=== PATIENT | female | born 1950 | race Caucasian/White ===

== ENCOUNTER → 2016-11-17 | Outpatient (CLI) | payer MEDICARE ==
--- NOTE | 2016-11-17 16:10 | BD ---
EXAMINATION TYPE: MG DEXA axial skeleton. DATE OF EXAM: 11/17/2016 1:30 PM CLINICAL HISTORY: 66 year-old female known osteoporosis, postmenopausal screening Height: 66 Weight: 182 FRAX RISK QUESTIONS: Alcohol (3 or more units per day): no Family History (Parent hip fracture): no Glucocorticoids (More than 3mos): no (Ex: prednisone, prednisolone, methylprednisolone, dexamethasone, and hydrocortisone). History of Fracture in Adulthood: yes Secondary Osteoporosis: 1. Type 1 Diabetes: no 2. Hyperthyroidism: no 3. Menopause before 45: no 4. Malnutrition: no 5. Chronic liver disease: no Rheumatoid Arthritis: no Current Tobacco Use: no RISK FACTORS HISTORY OF: History of Wrist Fracture: yes When: about 8 years ago Surgery to Wrist (left): yes When: about years ago Other Fractures since Age 51: yes, wrist When: about 8 years ago Family History of Osteoporosis: unsure Drink Alcohol: no Active: yes Diet low in dairy products/other sources of calcium: no Postmenopausal woman: yes Take estrogen and/or progesterone medications: no Lost more than 2 inches in height since high school: no Frequent falls: no Poor Health: no Hyperparathyroidism: no Adrenal Insufficiency: no MEDICATIONS: Prednisone or other steroids: no Thyroid Medications: no Osteoporosis Medications: not now... prescription just renewed Which medication: Fosamax recently; Actonel in 2014 How Long: a couple years Additional Medications: multi Vitamin EXAM MEASUREMENTS: Bone mineral densitometry was performed using the [employer]. Bone mineral density as measured about the Lumbar spine is: ----- L1-L4(G/cm2): 0.815 T Score Values are as follows: ----- L2: -3.0 ----- L3: -2.6 ----- L4: -3.4 ----- L1-L4: -3.0 Bone mineral density has: Increased 0.5% since study of: 03/11/2014 Bone mineral density about the R hip (g/cm2): 0.727 Bone mineral density about the L hip (g/cm2): 0.693 T Score values are as follows: -----R Neck: -2.2 -----L Neck: -2.5 -----R Intertrochanter: -1.7 -----L Intertrochanter: -1.8 Bone mineral density has: Increased 1.1% since study of: 03/11/2014 IMPRESSION: Osteoporosis as indicated by T score values in the lumbar spine and left hip. There is increased fracture risk and therapy is usually indicated based on age. Re-Screen 1-2 years. NOTE: T-SCORE=SD OF THE YOUNG ADULT MEAN.
--- NOTE | 2016-11-17 18:45 | WWHP ---
DATE OF DICTATION: 11/17/2016 CHIEF COMPLAINT: The patient is here for her routine gynecologic exam and mammogram. HISTORY OF PRESENT ILLNESS: This is a 66-year-old G1, P0-0-1-0 with an LMP of 1998. She is without gynecologic complaints. She denies any postmenopausal bleeding. She used to be seen by Dr. Medina for her gynecologic care. Her last Pap smear was in 2010. PAST MEDICAL HISTORY: 1. Arthritis. 2. Osteoporosis. 3. Chronic back problems. MEDICATIONS: 1. Fosamax 70 mg weekly. 2. Vitamin D supplement 1000 units daily. 3. Multivitamin 1 daily. 4. Fish oil supplement 1000 units daily. 5. Advil p.r.n. 6. Aspirin 325 mg daily. ALLERGIES: NO KNOWN DRUG ALLERGIES. PAST SURGICAL HISTORY: D&C in 1979 and left wrist surgery in the past. PAST OB HISTORY: One voluntary termination of . 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 SOCIAL HISTORY: She denies tobacco, alcohol and drug use. 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 She is a and is not seeing anybody at this time. FAMILY HISTORY: Mother had a CVA. Father had an ME. REVIEW OF SYSTEMS: She has gained about 10 pounds over the last 2 years. RESPIRATORY: She states she gets short of breath with exertion and is scheduled for a stress test because of this. She denies cardiac or GI problems. She denies maltreatment or falling. : She generally does not have any major problems with urinary leakage; however occasionally she has to get to the bathroom right away when she has the urge to go. She occasionally has leaked when she does not get to the bathroom in time. PHYSICAL EXAM: Blood pressure 131/84. Height 5 feet 7 inches. Weight 182 pounds. Temperature 97.8, pulse 84. This is a well-developed, well-nourished white female who is alert and oriented x3, in no acute distress. HEENT is within normal limits. NECK: Supple without mass or thyromegaly. CHEST AND LUNGS: Clear to auscultation. HEART: Regular rate and rhythm. Breasts are without mass or discharge. Axillary exam is negative for adenopathy. BACK: Negative for CVA tenderness. ABDOMEN: Soft, nontender, without palpable masses. PELVIC EXAM: External genitalia reveal mild to moderate atrophy without lesions. Cervix and vagina reveal mild atrophy without lesions. There is no evidence of prolapse. The uterus is midposition, nongravid size and nontender. There are no palpable adnexal masses or tenderness. Rectovaginal exam is negative for mass or tenderness and is negative for occult blood. EXTREMITIES: Nontender. IMPRESSION: 1. A 66-year-old menopausal female with normal gynecologic exam. 2. History of osteoporosis. PLAN: 1. Pap smear was performed. 2. Self breast examination was discussed. 3. Mammogram will be done today. 4. She will continue Fosamax 70 mg once weekly. Prescription for the upcoming year was given to the patient for this. We will consider discontinuing this in approximately 2 years. 5. Osteoporosis management was discussed, and we discussed the importance of adequate calcium, vitamin D and regular exercise. 6. Bone density testing will be repeated, since her last one was on 03/11/14. 7. She does receive flu shots and did get one early in the flu season. 8. Screening colonoscopy was recommended, and she states she is scheduled for this tomorrow. 9. She will return in one year.
--- NOTE | 2016-11-18 10:12 | MM ---
Reason for exam: screening (asymptomatic). Last mammogram was performed 1 year and 8 months ago. History: Patient is postmenopausal and is nulliparous. Took hormonal contraceptives for 1 year beginning at age 25. Physical Findings: A clinical breast exam by your physician is recommended on an annual basis and results should be correlated with mammographic findings. MG 3D Screening Mammo W/Cad Bilateral CC and MLO view(s) were taken. Prior study comparison: March 26, 2015, bilateral MG screening mammo w CAD. March 11, 2014, bilateral MG screening mammo w CAD. The breast tissue is heterogeneously dense. This may lower the sensitivity of mammography. No significant changes when compared with prior studies. ASSESSMENT: Benign, BI-RAD 2 RECOMMENDATION: Routine screening mammogram of both breasts in 1 year.
== END | disposition home or self-care (01) ==
LOC: WWCWWP 11:10
PROVIDERS: ATTEND Obstetrics & Gynecology
DX: Z12.31 Encounter for screening mammogram for malignant neoplasm of breast (principal); M81.8 Other osteoporosis without current pathological fracture; Z78.0 Asymptomatic menopausal state
CPT/HCPCS: 77080; 77063; G0202

== ENCOUNTER 2016-11-18 06:49 | Day surgery (SDC) | payer MEDICAID, MEDICARE ==
[2016-11-15 09:09] VITALS: BMI 29.0
[~2016-11-18 06:49] MED LIST: LACTATED RINGERS 1,000 ML IV SCH
[2016-11-18 07:25] VITALS: TEMP 98.1
[2016-11-18] MEDS ORDERED: LIDOCAINE 1% INJ 10MG/ML (20 ML MDV) ONE (07:48)
[2016-11-18] MEDS ORDERED: PROPOFOL 10 MG/ML 20 ML VIAL IV ONE (07:48)
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
--- NOTE | 2016-11-18 08:11 | P.OP ---
Date of Procedure: 11/18/16 Preoperative Diagnosis: Screening colonoscopy Postoperative Diagnosis: Diverticulosis Procedure(s) Performed: Colonoscopy Anesthesia: MAC Surgeon: Alexander Mina Pathology: none sent Condition: stable Disposition: PACU Description of Procedure: The patient's placed on the endoscopy table in the lateral position. She received IV sedation. Digital rectal exam was performed which revealed no abnormalities. The flexible colonoscope was then placed patient anus and passed throughout the entire colon. The ileocecal valve was visualized. The cecum, ascending and transverse colon appeared normal. In the descending and sigmoid colon there is evidence of diverticulosis. The scope was then brought back the rectum and this appeared normal. Scope was withdrawn for patient.
[2016-11-18 08:14] VITALS: BP 108/58; PULSE 78; RESP 14
== END 2016-11-18 09:05 | disposition home or self-care (01) ==
LOC: ORWHC2ENDO 06:49
PROVIDERS: ATTEND Surgery
DX: Z12.11 Encounter for screening for malignant neoplasm of colon (principal); K57.30 Diverticulosis of large intestine without perforation or abscess without bleeding; Z79.82 Long term (current) use of aspirin; Z79.899 Other long term (current) drug therapy
CPT/HCPCS: J2001; J2704; G0121; 45378

== ENCOUNTER → 2016-11-25 | Outpatient (CLI) | payer MEDICARE ==
--- NOTE | 2016-11-25 11:11 | ECHOS ---
DATE OF SERVICE: 11/25/2016 AGE: 66Y SEX: F HT: 66 WT: 182 lbs. Protocol Peter: X Others: Stress Echo Stage: II Dur. of Exercise: 5 minutes *Heart Rate Blood Pressure *Rest: 87 Rest: 117/70 * *Max. Achieved: 147 Maximum BP: 192/66 85% PMHR: 132 100% PMHR: 155 *METS: 6.8 INDICATIONS: Abnormal EKG. MEDICATIONS: Fosamax, aspirin. CLINICAL INFORMATION: History of chest pain, diabetes. Patient has been having chest heaviness and pressure, arm pain, jaw pain with exertion, lasting for 5 to 10 minutes. Highly suggestive of classical angina. Resting ECG shows sinus rhythm, rate of 87 beats per minute, IA interval 0.16, QRS of 0.08, poor R wave progression in anteroseptal leads. Utilizing a standard Peter protocol, a symptom limited treadmill test was performed. Patient exercised for total of 5 minutes, attained a peak heart rate of 147 beats per minute which is approximately 95% predicted maximum heart rate without any chest pain or pressure or ST segment deviations indicative of ischemia. Baseline images show normal thickening and contractility. Postexercise images show improved contractility ( ) all segments except basal inferior wall at peak exertion shows hypokinesis highly suggestive of stress-induced abnormal wall motion suggestive of underlying ischemic heart disease. 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 Abnormal stress echocardiogram with inferior wall hypokinesis at peak exertion compared to baseline suggestive of underlying ischemia. 2. Patient did not report any symptoms throughout the study.
== END | disposition home or self-care (01) ==
LOC: RADNMMAIN 08:46
PROVIDERS: ATTEND Family Medicine
DX: R94.31 Abnormal electrocardiogram [ECG] [EKG] (principal)
CPT/HCPCS: 93017; 93350

== ENCOUNTER → 2018-01-24 | Outpatient (CLI) | payer MEDICARE ==
[2018-01-24 09:42] VITALS: BP 130/64; PULSE 98; RESP 18; TEMP 97.8; BMI 29.2
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
--- NOTE | 2018-01-26 10:38 | MM ---
Reason for exam: screening (asymptomatic). Last mammogram was performed 1 year and 2 months ago. History: Patient is postmenopausal and is nulliparous. Took hormonal contraceptives for 1 year beginning at age 25. Physical Findings: A clinical breast exam by your physician is recommended on an annual basis and results should be correlated with mammographic findings. MG 3D Screening Mammo W/Cad Bilateral CC and MLO view(s) were taken. XCCL view(s) were taken of the right breast. Prior study comparison: November 17, 2016, bilateral MG 3d screening mammo w/cad. March 26, 2015, bilateral MG screening mammo w CAD. The breast tissue is heterogeneously dense. This may lower the sensitivity of mammography. No significant changes when compared with prior studies. ASSESSMENT: Negative, BI-RAD 1 RECOMMENDATION: Routine screening mammogram of both breasts in 1 year.
== END | disposition home or self-care (01) ==
LOC: WWCWWP 09:13
PROVIDERS: ATTEND Obstetrics & Gynecology
DX: Z12.31 Encounter for screening mammogram for malignant neoplasm of breast (principal)
CPT/HCPCS: 77063; 77067

== ENCOUNTER → 2019-05-29 | Outpatient (CLI) | payer MEDICARE ==
[2019-05-29 14:07] VITALS: BP 125/66; PULSE 98; RESP 18; TEMP 98.6; BMI 29.9
--- NOTE | 2019-05-29 15:04 | P.HPOB ---
History of Present Illness H&P Date: 05/29/19 Chief Complaint: The patient is here for her routine gynecologic exam and ma mmogram. This is a 68-year-old with an LMP of 1998. The patient is without gynecologic complaints and denies any postmenopausal bleeding. Review of Systems The patient's weight has been stable over the last year. She denies respiratory, cardiac, or G.I. problems. Past Medical History Past Medical History: Chest Pain / Angina Additional Past Medical History / Comment(s): OSTEOPOROSIS (Fosamax [phone]), CURVATURE OF THE SPINE WEARS A BACK BRACE,MURMUR, ARTHRITIS-KNEE'S, chronic back problems. 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 History of Any Multi-Drug Resistant Organisms: None Reported Past Surgical History: Orthopedic Surgery Additional Past Surgical History / Comment(s): LT WRIST PLATE SCREWS AND PINS IN HAND, d&C 1979. 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 - Past Family History Mother Family Medical History: CVA/TIA, Eye Disorder Additional Family Medical History / Comment(s): GLAUCOMA Father Family Medical History: Eye Disorder, Myocardial Infarction ([place]) Additional Family Medical History / Comment(s): CATARACTS Medications and Allergies Home Medications Medication Instructions Recorded Confirmed Type Aspirin [Adult Low Dose Aspirin EC] 81 mg PO DAILY 11/12/16 05/29/19 History Cholecalciferol [Vitamin D3] 1,000 unit PO DAILY 11/12/16 05/29/19 History Multivitamins, Thera [Multivitamin 1 tab PO DAILY 11/12/16 05/29/19 History (formulary)] Naproxen Sodium [Aleve] 220 mg PO Q12HR PRN 11/12/16 05/29/19 History Mag Hydrox/Al Hydrox/Simeth 30 ml PO DAILY 01/24/18 05/29/19 History [Maalox] Melatonin 3 mg PO HS 05/29/19 05/29/19 History Allergies Allergy/AdvReac Type Severity Reaction Status Date / Time No Known Allergies Allergy Verified 11/15/16 08:46 Exam Vital Signs Temp Pulse Resp BP Pulse Ox 05/29/19 14:04 98.6 F 98 18 125/66 96 Intake and Output 05/29/19 05/29/19 05/29/19 06:59 14:59 22:59 Other: Weight 84.368 kg Height 5 feet 6 inches, weight 186 pounds, BMI 30.0. This is a well-developed well-nourished white female who is alert and oriented times 3 in no acute distress. HEENT: Within normal limits. NECK: Supple without mass or thyromegaly. CHEST AND LUNGS: Clear to auscultation. HEART: Regular rate and rhythm. BREASTS: Are without mass or discharge. AXILLARY EXAM: Negative for adenopathy. BACK: Negative for CVA tenderness. ABDOMEN: Soft, nontender, without palpable masses. PELVIC EXAM: Normal external genitalia with mild atrophy. Cervix and vagina appear normal mild atrophy. There is no unusual discharge. There is no evidence of prolapse. The uterus is midposition, nongravid size and nontender. There are no palpable adnexal masses or tenderness. RECTAL EXAM: Rectovaginal exam is negative for mass or tenderness and is negative for occult blood. EXTREMITIES: Nontender. IMPRESSION: 1. 68-year-old menopausal female with normal gynecologic exam. 2. History of osteoporosis status post 3 years use of Fosamax. PLAN: 1. Pap smear was performed. If negative we will plan on repeating this in 2-3 years. If they are both negative we'll can consider discontinuing Pap smears since we will then have 3 negative Pap smears in 10 years. 2. Self breast awareness was discussed with the patient. 3. Screening mammogram will be done today. 4. Osteoporosis management was discussed. I have stressed the importance of adequate calcium, vitamin D and regular exercise. Recommended amounts of calcium and vitamin D were also discussed. I recommended repeating bone density testing and the order slip was given to the patient for this. 5. The patient was advised to return in 1-2 years for her well woman examination.
--- NOTE | 2019-05-31 10:59 | MM ---
Reason for exam: screening (asymptomatic). Last mammogram was performed 1 year and 4 months ago. History: Patient is postmenopausal and is nulliparous. Took hormonal contraceptives for 1 year beginning at age 25. Physical Findings: A clinical breast exam by your physician is recommended on an annual basis and results should be correlated with mammographic findings. MG 3D Screening Mammo W/Cad Bilateral CC and MLO view(s) were taken. XCCL view(s) were taken of the right breast. Prior study comparison: January 24, 2018, bilateral MG 3d screening mammo w/cad. November 17, 2016, bilateral MG 3d screening mammo w/cad. The breast tissue is heterogeneously dense. This may lower the sensitivity of mammography. No significant changes when compared with prior studies. ASSESSMENT: Benign, BI-RAD 2 RECOMMENDATION: Routine screening mammogram of both breasts in 1 year.
--- NOTE | 2019-06-05 18:31 | P.PN ---
Progress Note - Text Progress Note Date: 06/05/19 OUTPATIENT FOLLOW-UP NOTE TEST(S)/RESULTS: test results from 05/29/2019 include negative Pap smear and benign mammogram. METHOD OF NOTIFICATION: a message with these results was left on the patient's voice mail. PATIENT COMMENTS: DIAGNOSIS: negative Pap smear and benign mammogram. DISCUSSION: PLAN: The patient was advised to return in 1-2 years for her well woman examination.
== END | disposition home or self-care (01) ==
LOC: WWCWWP 13:51
PROVIDERS: ATTEND Obstetrics & Gynecology
DX: Z12.31 Encounter for screening mammogram for malignant neoplasm of breast (principal)
CPT/HCPCS: 77063; 77067

== ENCOUNTER → 2019-06-12 | Outpatient (CLI) | payer MEDICARE ==
--- NOTE | 2019-06-12 10:34 | BD ---
EXAMINATION TYPE: Axial Bone Density DATE OF EXAM: 06/12/2019 COMPARISON: 2017 CLINICAL HISTORY: post menopausal Height: 5'6 Weight: 183 FRAX RISK QUESTIONS: History of Fracture in Adulthood: y Secondary Osteoporosis: 3. Menopause before 45: y RISK FACTORS HISTORY OF: History of Wrist Fracture: left When: age 63 Surgery to Wrist (/left): y When: age 63 Postmenopausal woman: y MEDICATIONS: Additional Medications: Additional History: EXAM MEASUREMENTS: Bone mineral densitometry was performed using the [employer] System. Bone mineral density as measured about the Lumbar spine is: ----- L1-L4(G/cm2): 0.789 T Score Values are as follows: ----- L2: -3.2 ----- L3: -3.2 ----- L4: -3.5 ----- L1-L4: -3.3 Bone mineral density has: Decreased -4.5% since study of: 11/17/2016 Bone mineral density about the R hip (g/cm2): 0.699 Bone mineral density about the L hip (g/cm2): 0.693 T Score values are as follows: -----R Neck: -2.4 -----L Neck: -2.5 -----R Total: -1.6 -----L Total:-1.8 Bone mineral density has: Decreased -0.1% since study of: 11/17/2016 IMPRESSION: Osteoporosis (T Score less than -2.5) remains present. There remains increased fracture risk and therapy is usually indicated based on age. Re-Screen 1-2 years. NOTE: T-SCORE=SD OF THE YOUNG ADULT MEAN.
--- NOTE | 2019-06-13 09:18 | P.PN ---
Progress Note - Text Progress Note Date: 06/13/19 OUTPATIENT FOLLOW-UP NOTE TEST(S)/RESULTS: Bone density test done on 06/12/2019 shows osteoporosis with a decrease of 4.5% in the spine measurements. METHOD OF NOTIFICATION: The patient was notified by phone. PATIENT COMMENTS: The patient states she had discontinued the Fosamax after 3 years on her own. DIAGNOSIS: Worsening osteoporosis. DISCUSSION: I have recommended that she go back on Fosamax for an additional 2 years. She will have blood work recently done by Dr. Aguiar sent to me. If normal creatinine and normal serum calcium, I will re-prescribe the Fosamax. I have also stressed the importance of adequate calcium, vitamin D, and regular exercise. PLAN: As Above.
== END | disposition home or self-care (01) ==
LOC: RADBDWWP 08:25
PROVIDERS: ATTEND Obstetrics & Gynecology
DX: M81.0 Age-related osteoporosis without current pathological fracture (principal); Z78.0 Asymptomatic menopausal state
CPT/HCPCS: 77080

== ENCOUNTER → 2020-06-03 | Outpatient (CLI) | payer MEDICARE ==
[2020-06-03 15:16] VITALS: BP 116/77; PULSE 82; RESP 18; TEMP 98.2
--- NOTE | 2020-06-03 15:55 | P.HPOB ---
History of Present Illness H&P Date: 06/03/20 Chief Complaint: The patient is here for her routine gynecologic exam and ma mmogram. This is a 69-year-old with an LMP of 1998. The patient is without gynecologic complaints and denies any postmenopausal bleeding. Review of Systems She has lost 9 pounds over the past year. She denies respiratory or cardiac problems. GI: Occasional gastric reflux. She denies maltreatment or problems with falling. : she denies any significant problems with urinary leakage. 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 History of Any Multi-Drug Resistant Organisms: None Reported Past Surgical History: Orthopedic Surgery Additional Past Surgical History / Comment(s): LT WRIST PLATE SCREWS AND PINS IN HAND, d&C 1979. Colonoscopy 2017(next after 10yr) Past Anesthesia/Blood Transfusion Reactions: Postoperative Nausea & Vomiting (PONV) Past Psychological History: No Psychological Hx Reported Additional Psychological History / Comment(s): PT LOST HER 2 MONTHS AGO, HAS OCC BOUTS OF SADNNESS BUT DENIES FEELING DEPRESSED. NO THOUGHTS OF HARMING SELF. 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 - Past Family History Mother Family Medical History: CVA/TIA, Eye Disorder Additional Family Medical History / Comment(s): GLAUCOMA Father Family Medical History: Eye Disorder, Myocardial Infarction ([place]) Additional Family Medical History / Comment(s): CATARACTS Medications and Allergies Home Medications Medication Instructions Recorded Confirmed Type Aspirin [Adult Low Dose Aspirin EC] 81 mg PO DAILY 11/12/16 06/03/20 History Cholecalciferol [Vitamin D3] 1,000 unit PO DAILY 11/12/16 06/03/20 History Multivitamins, Thera [Multivitamin 1 tab PO DAILY 11/12/16 06/03/20 History (formulary)] Naproxen Sodium [Aleve] 220 mg PO Q12HR PRN 11/12/16 06/03/20 History Mag Hydrox/Al Hydrox/Simeth 30 ml PO DAILY 01/24/18 06/03/20 History [Maalox] Melatonin 3 mg PO HS 05/29/19 06/03/20 History Alendronate Sodium 70 mg PO WEEKLY #12 tab 06/26/19 06/03/20 Rx Calcium Carbonate [Calcium] 600 mg PO DAILY 06/03/20 06/03/20 History Allergies Allergy/AdvReac Type Severity Reaction Status Date / Time almond Allergy Swelling Unverified 06/03/20 15:09 Exam Vital Signs Temp Pulse Resp BP Pulse Ox 06/03/20 15:10 98.2 F 82 18 116/77 97 Intake and Output 06/03/20 06/03/20 06/03/20 06:59 14:59 22:59 Other: Weight 80.286 kg Height 5 feet 6 inches, weight 177 pounds, BMI 28.6. This is a well-developed well-nourished white female who is alert and oriented times 3 in no acute distress. HEENT: Within normal limits. NECK: Supple without mass or thyromegaly. CHEST AND LUNGS: Clear to auscultation. HEART: Regular rate and rhythm. BREASTS: Are without mass or discharge. There is central nipple inversion on the right side which she states she has had for many years. AXILLARY EXAM: Negative for adenopathy. BACK: Negative for CVA tenderness. ABDOMEN: Soft, nontender, without palpable masses. PELVIC EXAM: Normal external genitalia with mild to moderate atrophy. Cervix and vagina appear normal mild to moderate atrophy. There is no unusual discharge. There is no evidence of prolapse. The uterus is midposition, nongravid size and nontender. There are no palpable adnexal masses or tenderness. RECTAL EXAM: Rectovaginal exam is negative for mass or tenderness and is negative for occult blood. EXTREMITIES: Nontender. IMPRESSION: 1. 69-year-old menopausal female with normal gynecologic exam. 2. history of osteoporosis status post 3 years use of Fosamax between 2013 and 2016. Fosamax was restarted in 2019. PLAN: 1. Pap smear was deferred since she had a normal one last year. We will consider discontinuing Pap smears if her next one is negative. 2. Self breast awareness was discussed with the patient. 3. screening mammogram will be done today. 4. Osteoporosis prevention was discussed. I have stressed the importance of adequate calcium, vitamin D and regular exercise. Recommended amounts of calcium and vitamin D were also discussed. We will plan on repeating bone density testing in approximately 1 year. The electronic prescription for alendronate will be sent to [facility] pharmacy. She is having her PCP send her the lab results that were recently drawn. She will know if there are any abnormalities and the creatinine or serum calcium. 5. she did get her flu shot this fall. 6. The patient was advised to return in 1-2 years for her well woman examination.
--- NOTE | 2020-06-05 11:36 | MM ---
Reason for exam: screening (asymptomatic). Last mammogram was performed 1 year ago. History: Patient is postmenopausal and is nulliparous. Took hormonal contraceptives for 1 year beginning at age 25. Physical Findings: A clinical breast exam by your physician is recommended on an annual basis and results should be correlated with mammographic findings. MG 3D Screening Mammo W/Cad Bilateral CC and MLO view(s) were taken. Prior study comparison: May 29, 2019, bilateral MG 3d screening mammo w/cad. January 24, 2018, bilateral MG 3d screening mammo w/cad. The breast tissue is heterogeneously dense. This may lower the sensitivity of mammography. Focal asymmetry right outer CC. No significant new findings when compared with previous films. ASSESSMENT: Incomplete: need additional imaging evaluation, BI-RAD 0 RECOMMENDATION: Special view mammogram of the right breast. If lesion persists on supplemental views, image directed ultrasound is recommended. [facility] will attempt to contact patient to return for supplemental views and ultrasound if indicated.
== END | disposition home or self-care (01) ==
LOC: WWCWWP 14:59
PROVIDERS: ATTEND Obstetrics & Gynecology
DX: Z12.31 Encounter for screening mammogram for malignant neoplasm of breast (principal)
CPT/HCPCS: 77063; 77067

== ENCOUNTER → 2020-06-09 | Outpatient (CLI) | payer MEDICARE ==
--- NOTE | 2020-06-09 10:40 | MM ---
Reason for exam: additional evaluation requested from abnormal screening. Last mammogram was performed less than 1 month ago. History: Patient is postmenopausal and is nulliparous. Took hormonal contraceptives for 1 year beginning at age 25. Physical Findings: Nurse did not find any significant physical abnormalities on exam. MG 3D Work Up W/Cad RT Spot compression CC, spot compression MLO, and LM view(s) were taken of the right breast. Prior study comparison: June 03, 2020, bilateral MG 3d screening mammo w/cad. May 29, 2019, bilateral MG 3d screening mammo w/cad. The breast tissue is heterogeneously dense. This may lower the sensitivity of mammography. No discrete abnormality persists on additional views. These results were verbally communicated with the patient and result sheet given to the patient on 06/09/20. ASSESSMENT: Negative, BI-RAD 1 RECOMMENDATION: Return to routine screening mammogram schedule for both breasts.
== END | disposition home or self-care (01) ==
LOC: RADMAMWWP 09:38
PROVIDERS: ATTEND Obstetrics & Gynecology
DX: R92.8 Other abnormal and inconclusive findings on diagnostic imaging of breast (principal)
CPT/HCPCS: 77065; G0279; 77061

== ENCOUNTER → 2021-07-28 | Outpatient (CLI) | payer MEDICARE ==
[2021-07-28 14:29] VITALS: BP 138/85; PULSE 92; RESP 18; TEMP 98.6
--- NOTE | 2021-07-28 15:06 | P.HPOB ---
History of Present Illness H&P Date: 07/28/21 Chief Complaint: The patient is here for her routine gynecologic exam and ma mmogram. This is a 70-year-old with an LMP of 1998. The patient is without gynecologic complaints and denies any postmenopausal bleeding. Review of Systems She has lost about 3 pounds over the past year. She denies respiratory or cardiac problems. GI: Occasional gastric reflux which she treats naturally. 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 History of Any Multi-Drug Resistant Organisms: None Reported Past Surgical History: Orthopedic Surgery Additional Past Surgical History / Comment(s): LT WRIST PLATE SCREWS AND PINS IN HAND, d&C 1979. Colonoscopy 2017(next after 10yr) Past Anesthesia/Blood Transfusion Reactions: Postoperative Nausea & Vomiting (PONV) Past Psychological History: No Psychological Hx Reported Additional Psychological History / Comment(s): PT LOST HER 2 MONTHS AGO, HAS OCC BOUTS OF SADNNESS BUT DENIES FEELING DEPRESSED. NO THOUGHTS OF HARMING SELF. 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 - Past Family History Mother Family Medical History: CVA/TIA, Eye Disorder Additional Family Medical History / Comment(s): GLAUCOMA Father Family Medical History: Eye Disorder, Myocardial Infarction ([place]) Additional Family Medical History / Comment(s): CATARACTS Medications and Allergies Home Medications Medication Instructions Recorded Confirmed Type Aspirin [Adult Low Dose Aspirin EC] 81 mg PO DAILY 11/12/16 07/28/21 History Cholecalciferol [Vitamin D3] 1,000 unit PO DAILY 11/12/16 07/28/21 History Multivitamins, Thera [Multivitamin 1 tab PO DAILY 11/12/16 07/28/21 History (formulary)] Naproxen Sodium [Aleve] 220 mg PO Q12HR PRN 11/12/16 07/28/21 History Melatonin 3 mg PO HS 05/29/19 07/28/21 History Alendronate Sodium 70 mg PO WEEKLY #12 tab 06/03/20 07/28/21 Rx Calcium Carbonate [Calcium] 600 mg PO BID 06/03/20 07/28/21 History Ascorbic Acid/Elderberry Fruit 1 tab PO DAILY 07/28/21 07/28/21 History [Elderberry-Vit C 50-100 mg Chw] Zinc 50 mg PO DAILY 07/28/21 07/28/21 History Allergies Allergy/AdvReac Type Severity Reaction Status Date / Time almond Allergy Swelling Unverified 07/28/21 14:21 Exam Vital Signs Temp Pulse Resp BP Pulse Ox 07/28/21 14:21 98.6 F 92 18 138/85 96 Intake and Output 07/28/21 07/28/21 07/28/21 06:59 14:59 22:59 Other: Weight 78.925 kg Height 5 feet 5 inches, weight 174 pounds, BMI 29.0. This is a well-developed well-nourished white female who is alert and oriented times 3 in no acute distress. HEENT: Within normal limits. NECK: Supple without mass or thyromegaly. CHEST AND LUNGS: Clear to auscultation. HEART: Regular rate and rhythm. BREASTS: Are without mass or discharge. There is central nipple inversion of the right breast which the patient states she has had for many years. AXILLARY EXAM: Negative for adenopathy. BACK: Negative for CVA tenderness. ABDOMEN: Soft, nontender, without palpable masses. PELVIC EXAM: Normal external genitalia with mild atrophy. Cervix and vagina appear normal with mild atrophy. There is no unusual discharge. There is no evidence of prolapse. The uterus is midposition, nongravid size and nontender. There are no palpable adnexal masses or tenderness. RECTAL EXAM: Rectovaginal exam is negative for mass or tenderness and is negative for occult blood. EXTREMITIES: Nontender. IMPRESSION: 1. 70-year-old menopausal female with normal gynecologic exam. 2. History of osteoporosis. She had used Fosamax for 2-3 years between 2013 and 2016 and has resumed Fosamax since 2019. PLAN: 1. Pap smear was performed. If this is negative, this will be her third negative Pap smear in 10 years, so we will plan on discontinuing Pap smears. 2. Self breast awareness was discussed with the patient. We have also discussed symptoms associated with inflammatory breast cancer. 3. Screening mammogram will be done today. 4. Osteoporosis management was discussed. I have stressed the importance of adequate calcium, vitamin D and regular exercise. Recommended amounts of calcium and vitamin D were also discussed. She will continue Fosamax during this upcoming year. We will consider discontinuing it late in 2021. The prescription for her Fosamax will be sent to [facility] pharmacy. 5. She has not received a Covid vaccination. I have recommended that she look into doing this. We have discussed potential risks of not being vaccinated. She will consider this vaccination. 6. She was advised to return in one year for her annual well woman exam.
--- NOTE | 2021-08-03 11:25 | MM ---
Reason for exam: screening (asymptomatic). Last mammogram was performed 1 year and 2 months ago. History: Patient is postmenopausal and is nulliparous. Took hormonal contraceptives for 1 year beginning at age 25. Physical Findings: A clinical breast exam by your physician is recommended on an annual basis and results should be correlated with mammographic findings. MG 3D Screening Mammo W/Cad Bilateral CC and MLO view(s) were taken. XCCL view(s) were taken of the right breast. Prior study comparison: June 03, 2020, bilateral MG 3d screening mammo w/cad. May 29, 2019, bilateral MG 3d screening mammo w/cad. January 24, 2018, bilateral MG 3d screening mammo w/cad. The breast tissue is heterogeneously dense. This may lower the sensitivity of mammography. There is chronic nodularity bilaterally. No significant changes when compared with prior studies. ASSESSMENT: Benign, BI-RAD 2 RECOMMENDATION: Routine screening mammogram of both breasts in 1 year.
== END ==
LOC: WWCWWP 13:55
PROVIDERS: ATTEND Obstetrics & Gynecology
DX: Z12.31 Encounter for screening mammogram for malignant neoplasm of breast (principal); M17.0 Bilateral primary osteoarthritis of knee; Z87.39 Personal history of other diseases of the musculoskeletal system and connective tissue; Z79.899 Other long term (current) drug therapy; Z79.82 Long term (current) use of aspirin; Z91.018 Allergy to other foods
CPT/HCPCS: 77063; 77067

== ENCOUNTER → 2022-08-03 | Outpatient (CLI) | payer MEDICARE ==
[2022-08-03 11:06] VITALS: BP 149/78; PULSE 102; RESP 18; TEMP 98.4
--- NOTE | 2022-08-03 12:30 | P.HPOB ---
History of Present Illness H&P Date: 08/03/22 Chief Complaint: The patient is here for her routine gynecologic exam and ma mmogram. This is a 79-year-old with an LMP of 1998. The patient is without gynecologic complaints and denies any postmenopausal bleeding. Review of Systems She has lost about 10 pounds over the past year with diet and increased activity. Respiratory: She is getting over a cold. She denies cardiac problems. GI: Occasional gastric reflux symptoms. 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 History of Any Multi-Drug Resistant Organisms: None Reported Past Surgical History: Orthopedic Surgery Additional Past Surgical History / Comment(s): LT WRIST PLATE SCREWS AND PINS IN HAND, d&C 1979. Colonoscopy 2017(next after 10yr) Past Anesthesia/Blood Transfusion Reactions: Postoperative Nausea & Vomiting (PONV) Past Psychological History: No Psychological Hx Reported Additional Psychological History / Comment(s): PT LOST HER 2 MONTHS AGO, HAS OCC BOUTS OF SADNNESS BUT DENIES FEELING DEPRESSED. NO THOUGHTS OF HARMING SELF. 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 - Past Family History Mother Family Medical History: CVA/TIA, Eye Disorder Additional Family Medical History / Comment(s): GLAUCOMA Father Family Medical History: Eye Disorder, Myocardial Infarction ([place]) Additional Family Medical History / Comment(s): CATARACTS Medications and Allergies Home Medications Medication Instructions Recorded Confirmed Type Aspirin [Adult Low Dose Aspirin EC] 81 mg PO DAILY 11/12/16 08/03/22 History Cholecalciferol [Vitamin D3] 1,000 unit PO DAILY 11/12/16 08/03/22 History Multivitamins, Thera [Multivitamin 1 tab PO DAILY 11/12/16 08/03/22 History (formulary)] Naproxen Sodium [Aleve] 220 mg PO Q12HR PRN 11/12/16 08/03/22 History Calcium Carbonate [Calcium] 600 mg PO BID 06/03/20 08/03/22 History Alendronate Sodium 70 mg PO WEEKLY #12 tab 07/28/21 08/03/22 Rx Zinc 50 mg PO DAILY 07/28/21 08/03/22 History Allergies Allergy/AdvReac Type Severity Reaction Status Date / Time almond Allergy Swelling Unverified 08/03/22 10:46 Exam Vital Signs Temp Pulse Resp BP Pulse Ox 08/03/22 11:03 98.4 F 102 H 18 149/78 96 Intake and Output 08/02/22 08/03/22 08/03/22 22:59 06:59 14:59 Other: Weight 74.389 kg Height 5 feet 5 inches, weight 164 pounds, BMI 27.3. This is a well-developed well-nourished white female who is alert and oriented times 3 in no acute distress. HEENT: Within normal limits. NECK: Supple without mass or thyromegaly. CHEST AND LUNGS: Clear to auscultation. HEART: Regular rate and rhythm. BREASTS: Are without mass or discharge. AXILLARY EXAM: Negative for adenopathy. BACK: Negative for CVA tenderness. ABDOMEN: Soft, nontender, without palpable masses. PELVIC EXAM: Normal external genitalia with mild to moderate atrophy. Cervix and vagina appear normal with mild to moderate atrophy. There is no unusual discharge. There is no evidence of prolapse. The uterus is midposition, nongravid size and nontender. There are no palpable adnexal masses or tenderness. RECTAL EXAM: Rectovaginal exam is negative for mass or tenderness and is negative for occult blood. EXTREMITIES: Nontender. IMPRESSION: 1. 79-year-old menopausal female with normal gynecologic exam. 2. History of osteoporosis status post Fosamax use from [id number] and 2019 to present. PLAN: 1. Pap smears have been discontinued. 2. Self breast awareness was discussed with the patient. We have also discussed symptoms associated with inflammatory breast cancer. 3. Screening mammogram will be done today. 4. Osteoporosis management was discussed. I have stressed the importance of adequate calcium, vitamin D and regular exercise. Recommended amounts of calcium and vitamin D were also discussed. We have decided to discontinue Fosamax at this time since she has been on Fosamax for total of greater than 5 years. We will plan on repeating bone density testing in 2024. 5. She has not had a covert vaccination. She understands there may be benefits from being vaccinated for this. She will consider it. 6. She was advised to return in one year for her annual well woman exam.
--- NOTE | 2022-08-04 11:25 | MM ---
Reason for Exam: Screening (asymptomatic). Last screening mammogram was performed 12 month(s) ago. Patient History: Menarche at age 14. Patient has no children. Postmenopausal. Hormonal Contraceptives for 1 year from age 25 until age 26. Risk Values: Vanessa 5 year model risk: 1.9%. NCI Lifetime model risk: 5.6%. Prior Study Comparison: 06/03/2020 Bilateral Screening Mammogram, [facility]. 06/09/2020 Right Diagnostic Mammogram, [facility]. 07/28/2021 Bilateral Screening Mammogram, [facility]. Tissue Density: The breast tissue is heterogeneously dense. This may lower the sensitivity of mammography. Findings: Analyzed By CAD. Pattern appears stable. Benign vascular calcification is present bilaterally. No suspicious groups of microcalcifications, spiculated or lobular masses, architectural distortion or other secondary signs of malignancy are mammographically apparent. Overall Assessment: Benign, BI-RAD 2 Management: Screening Mammogram of both breasts in 1 year. A negative mammogram report should not preclude additional follow up of suspicious palpable abnormalities. Patient should continue monthly self breast exam. A clinical breast exam by your physician is recommended on an annual basis and results should be correlated with mammographic findings. Electronically signed and approved by: Chencho Barroso D.O. Radiologis
== END ==
LOC: WWCWWP 10:39
PROVIDERS: ATTEND Obstetrics & Gynecology
DX: Z12.31 Encounter for screening mammogram for malignant neoplasm of breast (principal); Z01.411 Encounter for gynecological examination (general) (routine) with abnormal findings; M81.0 Age-related osteoporosis without current pathological fracture; Z79.82 Long term (current) use of aspirin; Z91.018 Allergy to other foods; Z78.0 Asymptomatic menopausal state
CPT/HCPCS: 77063; 77067

== ENCOUNTER → 2023-09-27 | Outpatient (CLI) | payer MEDICARE ==
[2023-09-27 16:16] VITALS: BP 152/66; PULSE 90; RESP 17; TEMP 98.3
--- NOTE | 2023-09-27 16:51 | P.HPOB ---
History of Present Illness H&P Date: 09/27/23 Chief Complaint: The patient is here for her routine gynecologic exam and ma mmogram. This is a 73-year-old with an LMP of 1998. The patient is without gynecologic complaints. Review of Systems The patient's weight has been stable over the last year. She denies respiratory, cardiac, or G.I. problems. 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 History of Any Multi-Drug Resistant Organisms: None Reported Past Surgical History: Orthopedic Surgery Additional Past Surgical History / Comment(s): LT WRIST PLATE SCREWS AND PINS IN HAND, d&C 1979. Colonoscopy 2017(next after 10yr) Past Anesthesia/Blood Transfusion Reactions: Postoperative Nausea & Vomiting (PONV) Past Psychological History: No Psychological Hx Reported (PHQ-2 questionaire was given and she scores 0. This is a negative screen for depression.) Additional Psychological History / Comment(s): PT LOST HER 2 MONTHS AGO, HAS OCC BOUTS OF SADNNESS BUT DENIES FEELING DEPRESSED. NO THOUGHTS OF HARMING SELF. 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 - Past Family History Mother Family Medical History: CVA/TIA, Eye Disorder Additional Family Medical History / Comment(s): GLAUCOMA Father Family Medical History: Eye Disorder, Myocardial Infarction ([place]) Additional Family Medical History / Comment(s): CATARACTS Medications and Allergies Home Medications Medication Instructions Recorded Confirmed Type Aspirin [Adult Low Dose Aspirin EC] 81 mg PO DAILY 11/12/16 09/27/23 History Cholecalciferol [Vitamin D3] 1,000 unit PO DAILY 11/12/16 09/27/23 History Multivitamins, Thera [Multivitamin 1 tab PO DAILY 11/12/16 09/27/23 History (formulary)] Naproxen Sodium [Aleve] 220 mg PO Q12HR PRN 11/12/16 09/27/23 History Calcium Carbonate [Calcium] 600 mg PO BID 06/03/20 09/27/23 History Zinc 50 mg PO DAILY 07/28/21 09/27/23 History Rosuvastatin [Crestor] 10 mg PO DAILY 09/27/23 09/27/23 History Allergies Allergy/AdvReac Type Severity Reaction Status Date / Time almond Allergy Swelling Unverified 09/27/23 15:42 Exam Vital Signs Temp Pulse Resp BP Pulse Ox 09/27/23 15:44 98.3 F 90 17 152/66 99 Intake and Output 09/27/23 09/27/23 09/27/23 06:59 14:59 22:59 Other: Weight 74.843 kg Height 5 feet 5 inches, weight 165 pounds, BMI 27.5. This is a well-developed well-nourished white female who is alert and oriented times 3 in no acute distress. HEENT: Within normal limits. NECK: Supple without mass or thyromegaly. CHEST AND LUNGS: Clear to auscultation. HEART: Regular rate and rhythm. BREASTS: Are without mass or discharge. AXILLARY EXAM: Negative for adenopathy. BACK: Negative for CVA tenderness. ABDOMEN: Soft, nontender, without palpable masses. PELVIC EXAM: Normal external genitalia with mild to moderate atrophy. Cervix and vagina appear normal with moderate atrophy. There is no unusual discharge. There is no evidence of prolapse. The uterus is midposition, nongravid size and nontender. There are no palpable adnexal masses or tenderness. RECTAL EXAM: Rectovaginal exam is negative for mass or tenderness and is negative for occult blood. EXTREMITIES: Nontender. IMPRESSION: 1. 73-year-old menopausal female with normal gynecologic exam. 2. History of osteoporosis status post Fosamax use from [id number] and 2018- 2021. PLAN: 1. Pap smears have been discontinued. 2. Self breast awareness was discussed with the patient. We have also discussed symptoms associated with inflammatory breast cancer. 3. Screening mammogram will be done today. 4. Osteoporosis management was discussed. I have stressed the importance of adequate calcium, vitamin D and regular exercise. Recommended amounts of calcium and vitamin D were also discussed. We will plan on repeating the bone density test in 1 year. Her last one was done on 03/30/2022. 5. PHQ-2 questionaire was given and she scores 0. This is a negative screen for depression. 6. She was advised to return in one year for her annual well woman exam.
== END ==
LOC: WWCWWP 15:35
PROVIDERS: ATTEND Obstetrics & Gynecology
DX: Z12.31 Encounter for screening mammogram for malignant neoplasm of breast (principal); M81.0 Age-related osteoporosis without current pathological fracture; E78.5 Hyperlipidemia, unspecified; M17.0 Bilateral primary osteoarthritis of knee; M51.9 Unspecified thoracic, thoracolumbar and lumbosacral intervertebral disc disorder; Z78.0 Asymptomatic menopausal state; Z79.82 Long term (current) use of aspirin; Z91.018 Allergy to other foods
CPT/HCPCS: 77063; 77067

== ENCOUNTER → 2025-02-06 | Outpatient (CLI) | payer MEDICARE ==
[2025-02-06 08:08] VITALS: BP 131/80; PULSE 77; RESP 17; TEMP 97.7
--- NOTE | 2025-02-06 08:20 | P.HPOB ---
History of Present Illness H&P Date: 02/06/25 Chief Complaint: The patient is here for her routine gynecologic exam and ma mmogram. This is a 74-year-old -0-1-0 with an LMP of 1998. The patient is without gynecologic complaints and denies any postmenopausal bleeding. Review of Systems The patient has gained 9 pounds over the last year. She denies respiratory, cardiac, or G.I. problems. 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 Past ROLFER history: she has no history of STDs. History of Any Multi-Drug Resistant Organisms: None Reported Past Surgical History: Orthopedic Surgery Additional Past Surgical History / Comment(s): LT WRIST PLATE SCREWS AND PINS IN HAND, d&C 1979. Colonoscopy 2016(next after 10yr) Past Anesthesia/Blood Transfusion Reactions: Postoperative Nausea & Vomiting (PONV) Past Psychological History: No Psychological Hx Reported Additional Psychological History / Comment(s): PT LOST HER 2 MONTHS AGO, HAS OCC BOUTS OF SADNNESS BUT DENIES FEELING DEPRESSED. NO THOUGHTS OF HARMING SELF. 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 - Past Family History Mother Family Medical History: CVA/TIA, Eye Disorder Additional Family Medical History / Comment(s): GLAUCOMA Father Family Medical History: Eye Disorder, Myocardial Infarction ([place]) Additional Family Medical History / Comment(s): CATARACTS Medications and Allergies Home Medications Medication Instructions Recorded Confirmed Type Aspirin [Adult Low Dose Aspirin EC] 81 mg PO DAILY 11/12/16 02/06/25 History Cholecalciferol [Vitamin D3] 1,000 unit PO DAILY 11/12/16 02/06/25 History Multivitamins, Thera [Multivitamin 1 tab PO DAILY 11/12/16 02/06/25 History (formulary)] Naproxen Sodium [Aleve] 220 mg PO Q12HR PRN 11/12/16 02/06/25 History Calcium Carbonate [Calcium] 600 mg PO BID 06/03/20 02/06/25 History Zinc 50 mg PO DAILY 07/28/21 02/06/25 History Rosuvastatin [Crestor] 10 mg PO DAILY 09/27/23 02/06/25 History Allergies Allergy/AdvReac Type Severity Reaction Status Date / Time almond Allergy Swelling Unverified 02/06/25 08:06 Exam Vital Signs Temp Pulse Resp BP Pulse Ox 02/06/25 08:06 97.7 F 77 17 131/80 96 Intake and Output 02/05/25 02/06/25 02/06/25 22:59 06:59 14:59 Other: Weight 78.925 kg Height 5 feet 6 inches, weight 174 pounds, BMI 28.1. This is a well-developed well-nourished white female who is alert and oriented times 3 in no acute distress. HEENT: Within normal limits. NECK: Supple without mass or thyromegaly. CHEST AND LUNGS: Clear to auscultation. HEART: Regular rate and rhythm. BREASTS: Are without mass or discharge. AXILLARY EXAM: Negative for adenopathy. BACK: Negative for CVA tenderness. ABDOMEN: Soft, nontender, without palpable masses. PELVIC EXAM: Normal external genitalia with mild atrophy. Cervix and vagina appear normal with mild atrophy. There is no unusual discharge. There is no evidence of prolapse. The uterus is midposition, nongravid size and nontender. There are no palpable adnexal masses or tenderness. RECTAL EXAM: Rectovaginal exam is negative for mass or tenderness and is negative for occult blood. EXTREMITIES: Nontender. IMPRESSION: 1. 74-year-old menopausal female with normal gynecologic exam. 2. History of osteoporosis status post Fosamax use from [id number] and 2018- 2021. PLAN: 1. Pap smears have been discontinued. 2. Self breast awareness was discussed with the patient. We have also discussed symptoms associated with inflammatory breast cancer. 3. Screening mammogram will be done today. 4. Osteoporosis prevention was discussed. I have stressed the importance of adequate calcium, vitamin D and regular exercise. Recommended amounts of calcium and vitamin D were also discussed. Bone density test will be done today. 5. She was advised to return in one year for her annual well woman exam.
--- NOTE | 2025-02-06 09:05 | MM ---
Reason for Exam: Screening (asymptomatic). Last mammogram was performed 1 year(s) and 5 month(s) ago. Patient History: Menarche at age 14. Patient has no children. Postmenopausal. Hormonal Contraceptives for 1 year from age 25 until age 26. Risk Values: Vanessa 5 year model risk: 2.0%. NCI Lifetime model risk: 4.8%. Prior Study Comparison: 07/28/2021 Bilateral Screening Mammogram, [facility]. 08/03/2022 Bilateral MG 3D screening mammo w/cad, [facility]. 09/27/2023 Bilateral MG 3D screening mammo w/cad, [facility]. Tissue Density: The breasts are heterogeneously dense, which may obscure small masses. Findings: Analyzed By CAD. Chronic nodularity lateral right hip. Asymmetric densities right MLO view are unchanged as well. Benign bilateral secretory calcifications redemonstrated. There is no suspicious group of microcalcifications or new suspicious mass in either breast. Overall Assessment: Benign, BI-RAD 2 Management: Screening Mammogram of both breasts in 1 year. Patient should continue monthly self-breast exams. A clinical breast exam by your physician is recommended on an annual basis. This exam should not preclude additional follow-up of suspicious palpable abnormalities. Note on Vanessa scores and lifetime risk: 1. A Vanessa score greater than 3% is considered moderate risk. If this is the case, consider specialist referral to assess eligibility for a risk reducing agent. 2. If overall lifetime risk for the development of breast cancer is 20% or higher, the patient may qualify for future screening with alternating mammogram and breast MRI. [facility], , 02/06/2025 9:01 AM. Electronically signed and approved by: Param Carl M.D. Radiologist
--- NOTE | 2025-02-06 13:11 | BD ---
EXAMINATION TYPE: Axial Bone Density DATE OF EXAM: 02/06/2025 CLINICAL HISTORY: 74 years old Female. ICD-10 CODE: Z78.0 POST MENOPAUSAL , Additional History: Height: 5 ft 6 in Weight: 174 FRAX RISK QUESTIONS: Alcohol (3 or more units per day): no Family History (Parent hip fracture): no Glucocorticoids (More than 3mos): yes (Ex: prednisone, prednisolone, methylprednisolone, dexamethasone, and hydrocortisone). History of Fracture in Adulthood: yes Secondary Osteoporosis: 1. Type 1 Diabetes: no 2. Hyperthyroidism: no 3. Menopause before 45: yes 4. Malnutrition: no 5. Chronic liver disease: no Rheumatoid Arthritis: no Current Tobacco Use: no RISK FACTORS HISTORY OF: History of Wrist Fracture: left wrist When: 2011 Surgery to Spine/Hip(right/left)/Wrist (right/left): left wrist When: 2011 MEDICATIONS: Thyroid Medications: none Osteoporosis Medications: none EXAM MEASUREMENTS: Bone mineral densitometry was performed using the [employer] System. Bone mineral density as measured about the Lumbar spine is: ----- L1-L4(G/cm2): 0.782 T Score Values are as follows: ----- L1: -3.5 ----- L2: -3.5 ----- L3: -3.6 ----- L4: -2.9 ----- L1-L4: -3.3 Z Score Values are as follows: ----- L1: -2.3 ----- L2: -2.2 ----- L3: -2.3 ----- L4: -1.6 ----- L1-L4: -2.1 Bone mineral density has: increased 0.6 % since study of: 2021 Bone mineral density about the R hip (g/cm2): 0.715 Bone mineral density about the L hip (g/cm2): 0.697 T Score values are as follows: -----R Neck: -2.3 -----L Neck: -2.5 -----R Total: -1.7 -----L Total: -1.8 Z Score values are as follows: -----R Neck: -0.8 -----L Neck: -0.9 -----R Total: -0.4 -----L Total: -0.5 Bone mineral density has: decreased -3.0 % since study of: 2021 FRAX%s: The graph provided illustrates a 23.6 % chance for a major osteoporotic fx and a 6.6 % chance for the hips probability for fx in 10 years time. IMPRESSION: Osteoporosis (T Score less than -2.5). There is increased fracture risk and therapy is usually indicated based on age. Re-Screen 1-2 years. NOTE: T-SCORE=SD OF THE YOUNG ADULT MEAN. [facility], , 02/06/2025 1:08 PM
--- NOTE | 2025-02-06 14:28 | P.PN ---
Progress Note - Text Progress Note Date: 02/06/25 OUTPATIENT FOLLOW-UP NOTE TEST(S)/RESULTS: Test results from 02/06/2025 include benign mammogram and bone density test showing osteoporosis. The lumbar spine measurements were the ones in the osteoporosis range, was felt to increase by 0.6% from her last bone density test done in 2021. METHOD OF NOTIFICATION: A message with these results was left on the patient's voicemail on 02/06/2025. PATIENT COMMENTS: DIAGNOSIS: Benign mammogram. Osteoporosis status post 5 years use of bisphosphonates. DISCUSSION: At this time we will plan on continuing off of the bisphosphonates. Will plan on repeating the bone density test approximately 2 years. I have stressed the importance of getting adequate calcium, vitamin D, and regular exercise. PLAN: As above. She was advised to return in one year for her annual well woman exam.
== END ==
LOC: WWCWWP 07:49
PROVIDERS: ATTEND Obstetrics & Gynecology
DX: Z01.419 Encounter for gynecological examination (general) (routine) without abnormal findings (principal); Z12.31 Encounter for screening mammogram for malignant neoplasm of breast; M81.0 Age-related osteoporosis without current pathological fracture; Z78.0 Asymptomatic menopausal state; Z91.018 Allergy to other foods
CPT/HCPCS: 77063; 77067; 77080